=== PATIENT | female | born 1960 | race Caucasian/White ===

== ENCOUNTER 2018-03-06 06:15 | Day surgery (SDC) | payer OTHER ==
[~2018-03-06 06:15] MED LIST: FLEXERIL PO; LYRICA100 MG PO; RELAFEN PO
== END 2018-03-06 11:15 | disposition home or self-care (01) ==
LOC: CIR.AMB 06:15
DX: G56.01 Carpal tunnel syndrome, right upper limb (principal); M65.4 Radial styloid tenosynovitis [de Quervain]